=== PATIENT | male | born 1965 | race African-American/Black ===

== ENCOUNTER 2016-12-26 13:00 | Inpatient (IN) | payer OTHER ==
--- NOTE | ~2016-12-26 | HP ---
Unit #: [id number] #: [id number] Patient: DARYN HERNANDEZ [id number] [place] [address] [id number] MR#: [id number] NAME: DARYN HERNANDEZ ROOM: [facility] Age: 51 Sex: M Admission Date: 12/26/2016 : 1965 Attending Physician: Salas Shafer M.D. Admitting Physician: Salas Shafer M.D. Primary Care Physician: Primary Care Physician No HISTORY AND PHYSICAL HISTORY OF PRESENT ILLNESS Daryn is a 51 year old admitted to [address] [place] [address] with increased paranoia and reporting auditory hallucinations. PAST MEDICAL HISTORY Nothing significant. PAST SURGICAL HISTORY Nothing reported. ALLERGIES No known drug allergies. SOCIAL HISTORY Smokes one pack per day. Drinks alcohol weekly. Admits to using marijuana and cocaine. FAMILY HISTORY Medically noncontributory. REVIEW OF SYSTEMS CONSTITUTIONAL: No fever or chills. HEENT: Denies any sore throat, ear pain or runny nose. CARDIOVASCULAR: Denies chest pain, irregular heart rhythm or palpitations. CHEST: Denies shortness of breath or cough. No hemoptysis. GASTROINTESTINAL: Denies nausea, vomiting, diarrhea or chronic constipation. ENDOCRINE: Denies history of increased thirst or urination. No recent significant weight loss or gain. GENITOURINARY: Denies dysuria, frequency, or hematuria. SKIN: Denies any rashes. HEMATOLOGIC: Denies history of increased bleeding or bruising. MUSCULOSKELETAL: Denies any hot, swollen joints. No generalized muscle pain. NEUROLOGIC: Denies problems with vision or speech. No frequent, severe headaches. No numbness, tingling or weakness in any extremities. Denies loss of bladder or bowel control. CURRENT MEDICATIONS 1. Zyprexa Zydis 10 mg q. 8 hours p.r.n. 2. Milk of Magnesia p.r.n. 3. Maalox p.r.n. 4. Nicotine patch 14 mg q. day. Unit #: [id number] #: [id number] Patient: DARYN HERNANDEZ PHYSICAL EXAMINATION GENERAL: Alert, thin, appearing much older than his stated age of 51. No apparent distress. VITAL SIGNS: Blood pressure 120/80, heart rate 100, respirations 16, and temperature 98.6. HEIGHT: 5 feet 11 inches. SKIN: Warm and dry without rash or lesion. HEENT: Normocephalic. TMs not viewed. Oral and nasal passages clear. Conjunctivae clear. PERRLA. EOMs intact. NECK: Supple without lymphadenopathy or thyromegaly. HEART: Regular rate and rhythm without murmur. LUNGS: Clear. CHEST: There is a very small less than BB-sized firm, movable, nontender nodule in his left breast. ABDOMEN: Soft, nontender. : Not done. EXTREMITIES: No evidence of cyanosis, clubbing or edema. Moves all without focal deficit. NEUROLOGICAL: Grossly within normal limits. Cranial Nerves: II: Visual brock are intact. III, IV AND : Extraocular movements are intact. Pupils are equal, round and reactive to light. V: Facial sensation is grossly normal. VII: Facial movements and expression are normal. VIII: Auditory acuity grossly intact. IX, X: Uvula is midline. Phonation is normal. XI: Patient shrugs shoulders and turns head normally. XII: Tongue protrudes in the midline. Sensory and Motor Function: Sensory and motor sensation is grossly normal. Motor: moves all extremities well. Coordination: Gait is normal. Deep Tendon Reflexes: Intact. IMPRESSION 1. Psychiatric admission. 2. Small nodule left breast, most likely benign. RECOMMENDATIONS PSYCHIATRIC: Per psychiatrist. MEDICAL: 1. I see no contraindication to participate in this facility's activities. 2. The patient can follow up with PCP should he so choose for complete evaluation of the very small nodule in his left breast. Dictated by... Jerri Kovacs P.A.-C. for Gary Orr/anne TD: 12/27/2016 14:05 JOB #: [id number] Unit #: [id number] #: [id number] Patient: DARYN HERNANDEZ HISTORY AND PHYSICAL Page 1 of 1 X Jerri Kovacs HISTORY AND PHYSICAL
--- NOTE | ~2016-12-26 | PN ---
Unit #: [id number] #: [id number] Patient: DARYN HERNANDEZ [id number] [facility] [address] [place] [address] [id number] I MR#: [id number] NAME: DARYN HERNANDEZ ROOM: [facility] Age: 51 Sex: M Admission Date: 12/26/2016 : 1965 Attending Physician: Salas Shafer M.D. Admitting Physician: Salas Shafer M.D. Primary Care Physician: Primary Care Physician Bebe AMBROSIO PROGRESS NOTES DATE 12/28/2016 DISCUSSION The patient is pleasant and cooperative. Because of a nursing error, he did not receive his ordered Risperdal last evening but we will see that he receives it this evening. He is reporting improvement in mood and is beginning to push for discharge. Dictated by... Salas Shafer M.D. CB/pebbles TD: 12/28/2016 15:11 JOB #: [id number] [facility] PROGRESS NOTES Page 1 of 1 X Salas Shafer MD PROGRESS NOTE
--- NOTE | ~2016-12-26 | PA ---
Unit #: [id number] #: [id number] Patient: DARYN HERNANDEZ [id number] [facility] [address] [place] [address] [id number] I MR#: [id number] NAME: DARYN HERNANDEZ ROOM: P110 Age: 51 Sex: M Admission Date: 12/26/2016 : 1965 Date of Assessment: 12/27/2016 Attending Physician: Salas Shafer M.D. Admitting Physician: Salas Shafer M.D. Primary Care Physician: Primary Care Physician No PSYCHIATRIC ASSESSMENT IDENTIFYING INFORMATION The patient is a 51-year-old male admitted after presenting to this facility with increasing paranoia and auditory hallucinations. CHIEF COMPLAINT None given. INFORMANT(S) Patient and chart, reliability good. HISTORY OF PRESENT ILLNESS The patient is a 51-year-old male who carries a diagnosis of an undifferentiated schizophrenia. He has been off medications for several weeks. He had previously been on Risperdal prescribed through the auspices of [facility]. He states this medication has been helpful for him. The patient was brought to this facility by his mother. He had been observed responding to internal stimuli and had threatened to leave the hospital to "go to [facility] and buy some wine." The patient reports that he is presently homeless while awaiting approval for section 8 housing and has been "running the streets" per his report. He has a history of multiple incarcerations in the past and has been treated on multiple occasions at [facility] and [facility] per his report. He has been noncompliant with prescribed outpatient medication for some time, however. PAST PSYCHIATRIC HISTORY As above. PAST MEDICAL HISTORY Noncontributory. MEDICATIONS Risperdal. ALLERGIES None. FAMILY HISTORY Noncontributory. SOCIAL HISTORY The patient is currently homeless. He does report abuse of alcohol. He Unit #: [id number] #: [id number] Patient: DARYN HERNANDEZ denies abuse of other psychoactive substances. He is a smoker. He quit school "in the sixth grade." MENTAL STATUS EXAMINATION Examination at this time reveals the patient to be a thin, disheveled, male appearing perhaps a bit older than stated age of 51 years. He is in no apparent physical distress at the time of the examination. He is awake, alert, and oriented in all spheres. His mood is calm and pleasant. His affect appears constricted. Speech is generally well-coherent. There are no gross deficits in memory or cognition noted. Intelligence is judged to be in the average range based on fund of knowledge. The patient is cooperative throughout the interview. He is currently endorsing that he is currently denying suicidal or homicidal ideation, and denies any psychotic symptoms. He does not appear to be responding to internal stimuli. His judgment and insight appear to be reasonably intact. ASSETS AND LIABILITIES The patient's assets: Motivation for change. Liabilities: Lack of resources. DIAGNOSTIC IMPRESSION 1. Chronic undifferentiated schizophrenia. 2. Alcohol use disorder. TREATMENT PLAN The patient remains hospitalized for safety and stabilization. We will watch for any signs of alcohol withdrawal, and we will restart the patient's previously prescribed Risperdal 3 mg at h.s. The patient will participate in appropriate order of milieu activities. ESTIMATED LENGTH OF STAY 5 to 7 days. Dictated by... Salas Shafer M.D. AKI/anne TD: 12/27/2016 12:58 JOB #: [id number] PSYCHIATRIC ASSESSMENT Page 1 of 1 X Salas Shafer MD X PSYCHIATRIC ASSESSMENT
--- NOTE | ~2016-12-26 | DS ---
Unit #: [id number] #: [id number] Patient: DARYN HERNANDEZ [id number] [facility] [address] [place] [address] [id number] I MR#: [id number] NAME: DARYN HERNANDEZ ROOM: P110 Age: 51 Sex: M Admission Date: 12/26/2016 : 1965 Discharge Date: 12/29/2016 Attending Physician: Salas Shafer M.D. DISCHARGE SUMMARY REASON FOR ADMISSION The patient is a 51-year-old male, admitted with recurrence of psychotic symptoms following period of medication noncompliance. HOSPITAL COURSE The patient was admitted to the [address] [place] [address] unit and restarted on previously prescribed. Risperdal 3 mg at h.s. He tolerated re-initiation of medication without complaint and showed significant improvement. His stay in the hospital was progressed. By 12/29/2016, the patient was in brighter spirits and had tolerated re-initiation of medications was discussed at length and the discharge was ordered. FINAL DIAGNOSIS Chronic schizophrenia, undifferentiated type. DISPOSITION ON DISCHARGE The patient is discharged on the following medications: Risperdal 3 mg at bedtime for psychosis. DISCHARGE INSTRUCTIONS No dietary or physical restrictions were placed on the patient at the time of discharge. FOLLOWUP Followup will take place through the auspices of community mental health resources. PROGNOSIS The patient's prognosis is considered fair. Dictated by... Salas Shafer M.D. CB/eliot TD: 12/29/2016 14:48 JOB #: [id number] Unit #: [id number] #: [id number] Patient: DARYN HERNANDEZ DISCHARGE SUMMARY Page 1 of 1 X Salas Shafer MD X DISCHARGE SUMMARY
--- NOTE | ~2016-12-26 | CO ---
Unit #: [id number] #: [id number] Patient: DARYN HERNANDEZ [id number] [place] [address] [id number] MR#: [id number] NAME: DARYN HERNANDEZ ROOM: [facility] Age: 51 Sex: M Admission Date: 12/26/2016 : 1965 Attending Physician: Salas Shafer M.D. Primary Care Physician: Primary Care Physician No Consultation Date: 12/26/2016 CONSULTATION REPORT JOB NOTE: DICTATOR FOR NOT DICTATED Daryn is a 51-year-old who had complained of or was curious of a small hard round object in his left breast that had been there for years. We were asked to assess and give recommendations. The patient was seen for his admission H and P. This area was examined and described. Please see H and P dated 12/27/16. Dictated by... Jerri Kovacs P.A.-C. for Gary Orr/eliot TD: 12/27/2016 23:45 JOB #: [id number] CONSULTATION REPORT Page 1 of 1 X Jerri Kovacs CONSULTATION REPORT
== END 2016-12-29 17:02 | disposition home or self-care (01) | DRG 885 ==
LOC: P1S 15:05
DX: F20.5 Residual schizophrenia (principal); F10.10 Alcohol abuse, uncomplicated; F17.210 Nicotine dependence, cigarettes, uncomplicated